=== PATIENT | male | born 1990 | race American Indian/Alaskan Native ===

== ENCOUNTER 2019-07-11 21:14 | Emergency (ER) | payer SELFPAY ==
[2019-07-11 22:17] LABS: Basophils # (Auto) 0.1 K/mm3 (0.0-0.1); Basophils % (Auto) 0.6 % (0.0-1.8); Eosinophils % (Auto) 0.1 % (0.0-4.3); Hematocrit 44.7 % (35.5-45.6); Hemoglobin 14.9 gm/dl (11.8-15.2); Lymphocytes # (Auto) 1.7 K/mm3 (1.2-5.4); Lymphocytes % (Auto) 10.6 % (13.4-35.0); Mean Corpuscular HGB Conc 33 % (32-34); Mean Corpuscular Volume 97 fl (84-94); Red Blood Count 4.62 M/mm3 (3.65-5.03); Red Cell Distribution Width 13.5 % (13.2-15.2)
[2019-07-11 22:19] LABS: Platelet Count 289 K/mm3 (140-440)
--- NOTE | 2019-07-11 22:32 | Emergency Department Report ---
<STEVANRICHARDKARYNA MonchoLuis - Last Filed: 07/11/19 22:28> ED Psych HPI - General Chief Complaint: Psych Stated Complaint: MH EVAL Time Seen by Provider: 07/11/19 22:24 Source: police Mode of arrival: Ambulatory - History of Present Illness Initial Comments: Patient is 29 years old male unknown to me and no previous records for him. Patient brought to the emergency room via police department. Patient found walking in the street naked and hallucinating Patient is hyperverbal. Patient is paranoid. Patient denied any suicidal or homicidal ideation. Patient with obvious visual and auditory hallucinations. MD Complaint: altered mental status - Related Data Home Medications Medication Instructions Recorded Confirmed Last Taken Unobtainable 07/11/19 07/11/19 Unknown Allergies Allergy/AdvReac Type Severity Reaction Status Date / Time Unable to Assess Allergy Verified 07/11/19 21:20 ED Review of Systems Comment: All other systems reviewed and negative Constitutional: denies: chills, fever Respiratory: denies: cough, shortness of breath, SOB with exertion Cardiovascular: denies: chest pain, palpitations Gastrointestinal: denies: abdominal pain, nausea, vomiting, diarrhea, constipation, hematemesis Genitourinary: denies: urgency Musculoskeletal: denies: back pain Neurological: denies: headache, weakness ED Past Medical Hx - Past Medical History Previous Medical History?: No Additional medical history: refuses to answer - Surgical History Past Surgical History?: No Additional Surgical History: pt refuses to answer - Social History Smoking Status: Current Every Day Smoker Substance Use Type: Other - Medications Home Medications: Home Medications Medication Instructions Recorded Confirmed Last Taken Type Unobtainable 07/11/19 07/11/19 Unknown History ED Physical Exam - General Limitations: Altered Mental Status General appearance: alert, anxious, other (agitated) - Head Head exam: Present: atraumatic, normocephalic - Eye Eye exam: Present: normal appearance, PERRL - ENT ENT exam: Present: normal exam, normal orophraynx, mucous membranes moist - Neck Neck exam: Present: normal inspection, full ROM. Absent: tenderness, meningismus, lymphadenopathy, thyromegaly - Respiratory Respiratory exam: Present: normal lung sounds bilaterally - Cardiovascular Cardiovascular Exam: Present: regular rate, normal rhythm, normal heart sounds - GI/Abdominal GI/Abdominal exam: Present: soft, normal bowel sounds. Absent: distended, tenderness, guarding, rebound, rigid, organomegaly, mass, bruit, pulsatile mass, hernia - Extremities Exam Extremities exam: Present: normal inspection, full ROM, normal capillary refill - Neurological Exam Neurological exam: Present: alert, altered, normal gait, reflexes normal - Psychiatric Psychiatric exam: Present: agitated, manic. Absent: homicidal ideation, suicidal ideation - Skin Skin exam: Present: warm, intact, normal color ED Medical Decision Making - Lab Data Result diagrams: 07/11/19 21:59 ED Disposition Clinical Impression: Acute psychosis Disposition: DC-01 TO HOME OR SELFCARE Condition: Stable Referrals: [facility] [Outside] - 3-5 Days [facility] [Primary Care Provider] - 3-5 Days <ANDI JOHNSON - Last Filed: 07/14/19 11:35> ED Review of Systems ROS: Stated complaint: MH EVAL Other details as noted in HPI ED Course Vital Signs 07/12/19 07/12/19 07/12/19 02:58 07:00 14:00 Temperature 97.5 F L 98.2 F 98.4 F Pulse Rate 74 88 71 Respiratory 16 16 18 Rate Blood Pressure 138/88 120/67 142/63 [Left] O2 Sat by Pulse 100 100 99 Oximetry 07/12/19 07/13/19 07/13/19 20:00 01:15 08:50 Temperature 99.1 F 97.9 F 97.5 F L Pulse Rate 69 57 L 77 Respiratory 16 18 16 Rate Blood Pressure 127/70 116/63 110/64 [Left] O2 Sat by Pulse 99 99 99 Oximetry 07/13/19 07/14/19 07/14/19 20:00 01:00 08:10 Temperature 98.4 F 98 F 98.3 F Pulse Rate 70 54 L 88 Respiratory 18 14 18 Rate Blood Pressure 140/91 100/58 126/87 [Left] O2 Sat by Pulse 100 100 100 Oximetry ED Medical Decision Making - Lab Data Result diagrams: 07/11/19 21:59 07/11/19 21:59 - Medical Decision Making 1013 involuntary hold has been rescinded by psychiatric team.. Reviewed recommendations by psychiatric team. Mr. Sotelo is discharged home. Critical care attestation.: If time is entered above; I have spent that time in minutes in the direct care of this critically ill patient, excluding procedure time. ED Disposition Is pt being admited?: No Does the pt Need Aspirin: No
[2019-07-11 22:39] LABS: BUN/Creatinine Ratio 10; Blood Urea Nitrogen 14 mg/dL (9-20); Calcium 9.8 mg/dL (8.4-10.2); Hemolysis Index 17
[2019-07-11 22:46] LABS: Bilirubin,Urine NEG (Negative); Blood,Urine NEG (Negative); Color,Urine Yellow (Yellow); Mucus,Urine FEW /HPF; Urobilinogen,Urine < 2.0 mg/dL (<2.0)
[2019-07-11 22:51] LABS: Amphetamine Screen,Urine PRESUMPTIVE NEGATIVE; Benzodiazepines Screen,Urine PRESUMPTIVE NEGATIVE; Cocaine Screen,Urine PRESUMPTIVE NEGATIVE; Methadone Screen,Urine PRESUMPTIVE NEGATIVE; Opiate Screen,Urine PRESUMPTIVE NEGATIVE
[2019-07-11] MEDS ORDERED: ZIPRASIDONE MESYLATE 20 MG VIAL IM ONE (22:56)
[2019-07-11 23:12] LABS: Cannabinoid Screen,Urine PRESUMPTIVE POSITIVE
[2019-07-11] MEDS ORDERED: ZIPRASIDONE MESYLATE 20 MG VIAL IM PRN (23:34)
--- NOTE | 2019-07-12 12:46 | Consultation ---
History of Present Illness - Reason for Consult Consult date: 07/12/19 Reason for consult: Mental Health Evaluation Requesting physician: JOSH CALLES - Chief Complaint Chief complaint: "I'm being who I am" - History of Present Psychiatric Illness 29 y.o. AA male who presented to the ER for bizarre behavior (naked). today the patient was tangent during the assessment. He could not explain his actions logically prior to coming to the ER. He stated something about a "weegee board" causing him to act out. He denies a mental health dx, but stated that he smoke "weed" everyday. The patient had to be interviewed in the seclusion room because of safety concerns. Per the staff, the patient broke out a window while in another seclusion room. Overall, the patient is a poor historian at this time. No gestures of SI/HI's. Medications and Allergies Allergies Allergy/AdvReac Type Severity Reaction Status Date / Time Unable to Assess Allergy Verified 07/11/19 21:20 Home Medications Medication Instructions Recorded Confirmed Last Taken Type Unobtainable 07/11/19 07/11/19 Unknown History Active Meds: Active Medications Ziprasidone (Geodon) 20 mg IM Q12H PRN PRN Reason: Agitation Stop: 07/14/19 23:33 Last Admin: 07/11/19 23:35 Dose: 20 mg Documented by: Past psychiatric history - Past Medical History Past Medical History: No medical history, other Past Surgical History: No surgical history - past Psychiatric treatment and history psychiatric treatment history: Hx of Cannabis Use. Unable to obtain a fam psy hx. - Social History Social history: lives with family Mental Status Exam - Vital signs Last Vital Signs Temp 98.2 F 07/12/19 07:00 Pulse 88 07/12/19 07:00 Resp 16 07/12/19 07:00 BP 120/67 07/12/19 07:00 Pulse Ox 100 07/12/19 07:00 - Exam Narrative exam: MSE: Appearance: in hospital attire Behavior: regular eye contact Speech: hyper verbal Mood: "okay" Affect: congruent to mood Thought Process: tangential, loose associations Thought Content: no gestures of SI/HI's and AVH's, delusional Motor Activity: sitting up in chair Cognition: A/O x3 Insight: poor Judgment: poor Results Result Diagrams: 07/11/19 21:59 07/11/19 21:59 Abnormal lab results 07/11/19 07/11/19 07/11/19 Range/Units 21:59 21:59 21:59 WBC (4.5-11.0) K/mm3 MCV (84-94) fl Lymph % (Auto) (13.4-35.0) % Dougherty # (0.0-0.8) K/mm3 Seg Neutrophils % (40.0-70.0) % Seg Neutrophils # (1.8-7.7) K/mm3 Sodium 134 L (137-145) mmol/L Chloride 93.5 L (98-107) mmol/L Salicylates < 0.3 L (2.8-20.0) mg/dL Acetaminophen < 5.0 L (10.0-30.0) ug/mL 07/11/19 Range/Units 21:59 WBC 16.2 H (4.5-11.0) K/mm3 MCV 97 H (84-94) fl Lymph % (Auto) 10.6 L (13.4-35.0) % Dougherty # 1.0 H (0.0-0.8) K/mm3 Seg Neutrophils % 82.7 H (40.0-70.0) % Seg Neutrophils # 13.4 H (1.8-7.7) K/mm3 Sodium (137-145) mmol/L Chloride (98-107) mmol/L Salicylates (2.8-20.0) mg/dL Acetaminophen (10.0-30.0) ug/mL All other labs normal. Assessment and Plan Assessment and plan: Impression: Unspecified Psychosis. Cannabis Use DO. Today the patient was tangent during the assessment. WBC 16.2. DDx: Substance Induced Psychosis Recommendation/Plan: Continue 1013 and start Zyprexa 5 mg PO HS for psychosis. Attempted to discuss possible metabolic side effects of Zyprexa with the patient. Baseline A1c/Lipid Panel ordered for the AM. Dispo; The patient was referred to inpatient psy services. Will staff with Dr Sheri Sena.
--- NOTE | 2019-07-13 03:48 | Cat Scan Report ---
CT head/brain wo con INDICATION: acute psychosis. TECHNIQUE: Routine CT head without contrast. All CT scans at this location are performed using CT dos e reduction for ALARA by means of automated exposure control. COMPARISON: None. FINDINGS: BRAIN / INTRACRANIAL CONTENTS: No acute hemorrhage, mass effect, midline shift, or hydrocephalus. No appreciable acute large territorial or lacunar infarct. No chronic infarct or focal atrophy. Normal b rain volume and ventricular/sulcal size for age. ORBITS: No significant abnormality of visualized orbits. SINUSES / MASTOIDS: No significant abnormality of visualized sinuses and mastoid air cells. ADDITIONAL FINDINGS: None. IMPRESSION: 1. No acute intracranial abnormality on noncontrast CT of the brain. Signer Name: Yola Romano MD Signed: 07/13/2019 3:43 AM Workstation Name: [id number]
[2019-07-13 07:08] LABS: Chol/HDL Ratio 1.92 %
--- NOTE | 2019-07-13 09:29 | Emergency Department Report ---
Blank Doc - Documentation Documentation: This is a 29-year-old male that apparently was acutely psychotic yesterday. He had a violent episode and punched through a plexiglass window in a seclusion area of this emergency Department. He was given Zyprexa last night I presume. His drug screen was positive for marijuana. His white blood cell count was approximately 16,000. I've been asked to comment on his leukocytosis. View the patient's vital signs show no signs of systemic immune response syndrome. At the time of my encounter the patient is completely lucid. He states he had a negative HIV test when he was in longterm. He states he didn't have any intercurrent illness or symptoms before he "started running his mouth off yesterday". At this point, I do not believe he is acutely psychotic any longer. Review of systems: All symptoms systems reviewed and negative. Physical exam Gen appearance: nontoxic and well-hydrated HEENT throat is clear or mucosa is moist Neck supple no thyromegaly no lymphadenopathy Chest clear to auscultation Cardiovascular regular rhythm irregular murmur Gastrointestinal abdomen is soft and nontender no organomegaly noted Musculoskeletal exam no deformity for range of motion Skin no acute lesions noted Neurological exam awake alert and oriented no focal deficits Assessment Brief psychotic episode: Probable toxic delirium Reactive leukocytosis Medically appropriate for psychiatric hospitalization Plan Patient continues to be medically cleared appropriate for psychiatric hospitalization. It is not medically indicated to repeat his white blood cell count at this time.
--- NOTE | 2019-07-13 14:12 | Progress Note ---
Subjective - Reason for Consult Consult date: 07/13/19 Reason for consult: Psychiatric Follow-up Evaluation - Chief Complaint Chief complaint: "I'm good." Patient is a 29 y.o. AA male who presented to the ER for bizarre behavior (naked). Today the patient is calm and cooperative during the assessment. Patient states, " I'm here for some foolishness. I was naked. I think I got a hold to some bad weed." On 07-12-19 patient became agitated and knocked out window. Today patient is less irritated/agitated. He reports good sleep and appetite. Currently, he denies SI/HI's, A/VH's, and delusions. Mental Status Exam - Vital signs Last Vital Signs Temp 97.5 F L 07/13/19 08:50 Pulse 77 07/13/19 08:50 Resp 16 07/13/19 08:50 BP 110/64 07/13/19 08:50 Pulse Ox 99 07/13/19 08:50 - Exam Narrative exam: MSE: Appearance: in hospital attire Behavior: regular eye contact Speech: hyper verbal Mood: "I'm good" ; less irritable Affect: congruent to mood Thought Process: circumstantial Thought Content: no gestures of SI/HI's and AVH's, delusional Motor Activity: sitting up in chair Cognition: A/O x 3 Insight: variable Judgment: variable Assessment and Plan Impression: Unspecified Psychosis. Cannabis Use DO. Today the patient is calm and cooperative during the assessment. Thoughts are more clear. No agitation noted. WBC 16.2. DDx: Substance Induced Psychosis Recommendation/Plan: 1. Continue 1013. Will reevaluate patient's 1013 in 24 hours 2. Continue Zyprexa 5 mg PO HS for psychosis. Attempted to discuss possible metabolic side effects of Zyprexa with the patient. Reviewed baseline A1c/Lipid Panel ordered for the AM. Disposition: The patient has been referred to inpatient psychiatric services. Will staff with Dr. Sheri Sena.
[2019-07-14 10:04] VITALS: BP 126/87
--- NOTE | 2019-07-14 10:16 | Progress Note ---
Subjective - Reason for Consult Consult date: 07/14/19 Reason for consult: Psychiatry Follow-up - Chief Complaint Chief complaint: "I have to stop smoking weed" Patient is a 29 y.o. AA male who presented to the ER for bizarre behavior (naked). Today the patient was calm and cooperative during the assessment. He stated that he need to stop smoking marijuana and concentrate more on having a better life. He stated that he is willing to attend rehab services once discharged. He denies SI/HI's and AVH's. He denies being paranoid. Per the record, no behavioral disturbances overnight by the patient. He denies any side effects from his medication. Mental Status Exam - Vital signs Last Vital Signs Temp 98.3 F 07/14/19 08:10 Pulse 88 07/14/19 08:10 Resp 18 07/14/19 08:10 BP 126/87 07/14/19 08:10 Pulse Ox 100 07/14/19 08:10 - Exam Narrative exam: MSE: Appearance: calm, cooperative Behavior: regular eye contact Speech: regular rate and tone Mood: "okay" Affect: congruent to mood Thought Process: more organized Thought Content: denies SI/HI's and AVH's Motor Activity: ambulatory Cognition: A/O x3 Insight: fair Judgment: appropriate Assessment and Plan Impression: Unspecified Psychosis. Cannabis Use DO. No overt psychosis with the patient. Today the patient was calm and cooperative during the assessment. DDx: Substance Induced Psychosis Recommendation/Plan: Rescind 1013. Continue Zyprexa 5 mg PO HS for psychosis. Discussed possible metabolic side effects of Zyprexa with the patient, he verbalized understanding. Discussed the importance to abstain from recreational drugs with the patient, he verbalized understanding. Dispo; The patient can follow up with [facility] for outpatient psy/rehab services. Will staff with Dr Sheri Sena.
== END 2019-07-14 12:10 | disposition home or self-care (01) ==
LOC: ED 21:14 → EEVIPCON 21:14 → ED 07-14 12:10
DX: F23 Brief psychotic disorder (principal); F17.200 Nicotine dependence, unspecified, uncomplicated
CPT/HCPCS: 36415; 80048; 80061; 80307; 81001; 83036; 85025; 96372; 99285; J3486; 70450; 80320; G0480